=== PATIENT | female | born 1925 | race Caucasian/White ===

== ENCOUNTER 2017-01-18 23:56 | Emergency (ER) | payer MEDICARE, BC ==
[2017-01-19 00:02] VITALS: BP 152/64
[2017-01-19] MEDS ORDERED: NS 0.9% 1000 ML* 1,000 ML IV ONE (00:41)
[2017-01-19] MEDS ORDERED: Acetaminophen TAB* 325 MG PO ONE (00:43)
[2017-01-19 01:22] LABS: Hematocrit 38 % (35-47); Hemoglobin 12.5 g/dl (12.0-16.0); Mean Corpuscular HGB Conc 33 g/dl (31-36); Mean Corpuscular Hemoglobin 31 pg (27-31); Mean Corpuscular Volume 95 fL (80-97); Mean Platelet Volume 8 um3 (7.4-10.4); Red Blood Count 4.04 10^6/ul (4.0-5.4); Red Cell Distribution Width 14 % (10.5-15); White Blood Count 10.9 10^3/ul (3.5-10.8)
[2017-01-19 01:38] LABS: BUN/Creatinine Ratio 23.8 (8-20); EGFR African American 41.7 (>60); EGFR Non-African American 32.4 (>60); Globulin 2.9 g/dL (2-4); Potassium 4.8 mmol/L (3.5-5.0); Total Bilirubin 0.5 mg/dL (0.2-1.0); Total Protein 6.9 g/dL (6.4-8.9)
[2017-01-19 02:19] LABS: C Reactive Protein 1.14 mg/L (< 5.00)
--- NOTE | 2017-01-19 03:59 | ED ---
Denny Barth Janilya, scribed for Elizabeth Rodgers MD on 01/19/17 at 0023 . Lower Extremity - HPI Summary HPI Summary: An 89 y/o female came in to [facility] presenting w/ a sudden onset of constant leg pain starting an hour ago. Pt states she was reading and crossing her legs. When she uncrossed her legs, her left leg would not "stretch out". There is still severe pain at this time. Severity rated 7/10. She also complains of a left foot pain. The pain is described as "something squeezing the arch of the foot". She also states it is red and swollen. Pt is not on blood thinners, although pt normally takes aspirin. PMHx pacemaker for afib, HTN. - History of Current Complaint Chief Complaint: EDExtremityLower Stated Complaint: LEFT FOOT RED AND SWELLING Time Seen by Provider: 01/19/17 00:09 Hx Obtained From: Patient Onset of Pain: Hours Onset/Duration: Hours Severity Initially: Moderate Severity Currently: Moderate Pain Intensity: 6 Pain Scale Used: 0-10 Numeric Timing: Constant Character Of Pain: Aching Associated Signs And Symptoms: Positive: Swelling, Redness Aggravating Factor(s): Nothing Alleviating Factor(s): Nothing - Allergies/Home Medications Allergies/Adverse Reactions: Allergies Allergy/AdvReac Type Severity Reaction Status Date / Time No Known Allergies Allergy Verified 04/16/15 18:44 PMH/Surg Hx/FS Hx/Imm Hx Previously Healthy: Yes Endocrine/Hematology History: Denies: Hx Diabetes, Hx Thyroid Disease Cardiovascular History: Reports: Hx Angina, Hx Coronary Artery Disease, Hx Hypertension, Hx Pacemaker/ICD Respiratory History: Denies: Hx Asthma, Hx Chronic Obstructive Pulmonary Disease (COPD) GI History: Denies: Hx Ulcer Comment Only: Other GI Disorders - Current upper GI bleed. Musculoskeletal History: Reports: Hx Back Problems, Hx Orthopedic Injury - Right hip and humerus currently fx Denies: Hx Rheumatoid Arthritis, Hx Osteoporosis Sensory History: Reports: Hx Contacts or Glasses, Hx Hearing Aid Denies: Hx Cataracts, Hx Eye Injury, Hx Eye Prosthesis, Hx Glaucoma, Hx Legally Blind, Hx Macular Degeneration, Hx Vision Problem, Hx Deafness, Hx Hearing Problem, Other Sensory Impairments Opthamlomology History: Reports: Hx Contacts or Glasses Denies: Hx Cataracts, Hx Eye Injury, Hx Eye Prosthesis, Hx Glaucoma, Hx Legally Blind, Hx Macular Degeneration, Hx Vision Problem, Other Sensory Impairments - Cancer History Cancer Type, Location and Year: right breast ca - see below Hx Chemotherapy: Yes - BREAST Hx Radiation Therapy: No - Surgical History Surgery Procedure, Year, and Place: breast cancer mastectomy with lymphectomy right side 2012. right hip fx - repaired with pins,. right shoulder fx. hysterrectomy. ectopic surgery Hx Anesthesia Reactions: No Infectious Disease History: No Infectious Disease History: Denies: Hx Clostridium Difficile, Hx Hepatitis, Hx Human Immunodeficiency Virus (HIV), Hx of Known/Suspected MRSA, Hx Shingles, Hx Tuberculosis, Hx Known/ Suspected VRE, Hx Known/Suspected VRSA, History Other Infectious Disease, Traveled Outside the [place] in Last 30 Days - Family History Known Family History: Negative: Hypertension - Social History Occupation: Retired Lives: With Family Alcohol Use: None Hx Substance Use: No Substance Use Type: Reports: None Hx Tobacco Use: Yes Smoking Status (MU): Former Smoker Type: Cigarettes Length of Time of Smoking/Using Tobacco: only smoked 1 year Have You Smoked in the Last Year: No Review of Systems Positive: Arthralgia - L leg pain, Myalgia - L leg pain, Edema - of L foot Positive: Other - erythema of L foot All Other Systems Reviewed And Are Negative: Yes Physical Exam Triage Information Reviewed: Yes Vital Signs On Initial Exam: Initial Vitals Temp Pulse Resp BP Pulse Ox 98.1 F 60 14 152/64 100 01/19/17 00:01 01/19/17 00:01 01/19/17 00:01 01/19/17 00:01 01/19/17 00:01 Vital Signs Reviewed: Yes Appearance: Positive: Well-Appearing, No Pain Distress Skin: Positive: Warm, Skin Color Reflects Adequate Perfusion Eyes: Positive: EOMI, DEMARCUS ENT: Positive: Pharynx normal, TMs normal Neck: Positive: Supple, Nontender Respiratory/Lung Sounds: Positive: Clear to Auscultation, Breath Sounds Present. Negative: Rales, Rhonchi, Wheezes Cardiovascular: Positive: RRR. Negative: Murmur, Rub, Other - no gallops Abdomen Description: Positive: Nontender, Soft. Negative: Distended, Guarding, Other: - no rebound Bowel Sounds: Positive: Present Musculoskeletal: Positive: Strength/ROM Intact, Other - Left leg is red and warm to touch. There is good blood flow, good pulses. Tenderness of plantar fascia and tenderness of calf. Neurological: Positive: Sensory/Motor Intact, Alert, Oriented to Person Place, Time, CN Intact II-III Psychiatric: Positive: Affect/Mood Appropriate Diagnostics - Vital Signs Vital Signs Temp Pulse Resp BP Pulse Ox 01/19/17 00:01 98.1 F 60 14 152/64 100 - Laboratory Lab Results: Lab Results 01/19/17 01/19/17 Range/Units 01:10 01:10 WBC 10.9 H (3.5-10.8) 10^3/ul RBC 4.04 (4.0-5.4) 10^6/ul Hgb 12.5 (12.0-16.0) g/dl Hct 38 (35-47) % MCV 95 (80-97) fL MCH 31 (27-31) pg MCHC 33 (31-36) g/dl RDW 14 (10.5-15) % Plt Count 160 (150-450) 10^3/ul MPV 8 (7.4-10.4) um3 Neut % (Auto) 72.6 (38-83) % Lymph % (Auto) 16.6 L (25-47) % Throckmorton % (Auto) 7.3 (1-9) % Eos % (Auto) 2.5 (0-6) % Baso % (Auto) 1.0 (0-2) % Absolute Neuts (auto) 8.0 H (1.5-7.7) 10^3/ul Absolute Lymphs (auto) 1.8 (1.0-4.8) 10^3/ul Absolute Monos (auto) 0.8 (0-0.8) 10^3/ul Absolute Eos (auto) 0.3 (0-0.6) 10^3/ul Absolute Basos (auto) 0.1 (0-0.2) 10^3/ul Absolute Nucleated RBC 0 10^3/ul Nucleated RBC % 0 Sodium 132 L (133-145) mmol/L Potassium 4.8 (3.5-5.0) mmol/L Chloride 98 L (101-111) mmol/L Carbon Dioxide 31 (22-32) mmol/L Anion Gap 3 (2-11) mmol/L BUN 36 H (6-24) mg/dL Creatinine 1.51 H (0.51-0.95) mg/dL Est GFR ( Amer) 41.7 (>60) Est GFR (Non-Af Amer) 32.4 (>60) BUN/Creatinine Ratio 23.8 H (8-20) Glucose 103 H (70-100) mg/dL Calcium 9.0 (8.6-10.3) mg/dL Total Bilirubin 0.50 (0.2-1.0) mg/dL AST 21 (13-39) U/L ALT 14 (7-52) U/L Alkaline Phosphatase 59 (34-104) U/L C-Reactive Protein 1.14 (< 5.00) mg/L Total Protein 6.9 (6.4-8.9) g/dL Albumin 4.0 (3.2-5.2) g/dL Globulin 2.9 (2-4) g/dL Albumin/Globulin Ratio 1.4 (1-3) Result Diagrams: 01/19/17 01:10 01/19/17 01:10 Lab Statement: Any lab studies that have been ordered have been reviewed, and results considered in the medical decision making process. - Ultrasound No standard instances Ultrasound Interpretation: No Acute Changes - Venous doppler exam: No evidence for DVT visualized portions left lower extremity. Left peroneal veins difficult to see, possibly due to small size. Ultrasound Interpretation Completed By: Radiologist Lower Extremity Course/Dx - Course Course Of Treatment: An 89 y/o female came in to [facility] presenting w/ a sudden onset of constant leg pain starting an hour ago. Pt states she was reading and crossing her legs. When she uncrossed her legs, her left leg would not "stretch out". There is still severe pain at this time. Severity rated 7/10. She also complains of a left foot pain. The pain is described as "something squeezing the arch of the foot". She also states it is red and swollen. left foot with slight increase in warmth than right but both feet with extensive varicose veins. xray of foot neg, labs neg, and doppler neg. she is notably tender over the plantar fascia, pt and daughter very concerned about change in color and so a script for keflex was sent to [facility] in case she starts to get streaking or increased redness over foot on friday when her pmd is not available. Pt is not on blood thinners, although pt normally takes aspirin. PMHx pacemaker for afib , HTN. - Diagnoses Provider Diagnoses: Plantar fasciitis Discharge - Discharge Plan Condition: Stable Disposition: HOME Prescriptions: Cephalexin CAP* [Keflex CAP*] 500 mg PO QID #28 cap The documentation as recorded by the Denny perrin Janilya accurately reflects the service I personally performed and the decisions made by me, Elizabeth Rodgers MD.
--- NOTE | 2017-01-19 08:24 | RAD ---
Indication: LEFT foot pain and swelling. Comparison: No relevant prior exams available on the [facility] [place] Technique: AP, lateral, and oblique views LEFT foot. Report: Bone density appears decreased throughout corresponding with osteopenia on August 28, 2015 DEXA scan. No cortical disruption or suspicious trabecular irregularity to suggest fracture. Negative for dislocation. Diffuse hyperextension of the toes at the metatarsophalangeal joints. Mild osteophytosis and joint space narrowing at the first metatarsal phalangeal joint. Mild nonfocal soft tissue swelling. Negative for subcutaneous emphysema. IMPRESSION: Negative for fracture.
--- NOTE | 2017-01-19 11:33 | RAD ---
INDICATION: LEFT foot and calf pain. COMPARISON: No relevant prior exams available on the [facility] [place]. TECHNIQUE: Jones scale, color Doppler, and spectral analysis of the deep veins of the LEFT lower extremity. Vessel compression, phasicity, and augmentation assessed. REPORT: The LEFT common femoral, great saphenous, profunda femoral, femoral, and popliteal veins are patent. Patent posterior tibial veins. Conspicuity of the paired diminutive peroneal veins is limited without gross evidence for thrombosis. Patency of the contralateral common femoral vein documented. IMPRESSION: 1. No evidence for LEFT lower extremity DVT from the level of the popliteal vein proximal. 2. Assessment of the LEFT below-knee veins limited without gross evidence for posterior tibial or peroneal vein thrombosis.
== END 2017-01-19 04:17 | disposition home or self-care (01) ==
LOC: ED 23:56
DX: M72.2 Plantar fascial fibromatosis (principal)
CPT/HCPCS: 36415; 80053; 85025; 86140; 99282; A9270-GY

== ENCOUNTER 2017-03-13 12:07 | Emergency (ER) | payer MEDICARE, BC ==
[2017-03-13] MEDS ORDERED: Ondansetron ODT TAB* 4 MG PO ONE (12:49)
--- NOTE | 2017-03-13 12:55 | ED ---
Complex/Multi-Sys Presentation - HPI Summary HPI Summary: Pt here w/ mechanical fall this morning - tripped over feet - hit face, has BELL and feels a little dizzy now - no prior dizziness, chest pain, SOB, pain. Takes ASA daily. Mild neck pain at base of neck. Denies pain in extremities or elsewhere. A. fib controlled w/ meds. Pacer. No anticoagulants. - History Of Current Complaint Chief Complaint: EDHeadInjury Time Seen by Provider: 03/13/17 12:49 Hx Obtained From: Patient - Allergies/Home Medications Allergies/Adverse Reactions: Allergies Allergy/AdvReac Type Severity Reaction Status Date / Time No Known Allergies Allergy Verified 03/13/17 12:21 Home Medications: Home Medications Alendronate (NF) [Fosamax (NF)] 70 mg PO WEEKLY 03/13/17 [History Confirmed ] Amiodarone TAB* [Cordarone TAB*] 200 mg PO DAILY 03/13/17 [History Confirmed ] Aspirin EC Low Dose* [Ecotrin EC Low Dose 81 MG*] 81 mg PO DAILY 03/13/17 [ History Confirmed 03/13/17] Cholecalciferol [Vitamin D3 Super Strength] 2,000 unit PO DAILY 03/13/17 [ History Confirmed 03/13/17] Ferrous Sulfate [Iron (Ferrous Sulfate)] 50 mg PO DAILY 03/13/17 [History Confirmed 03/13/17] Nystatin OINT* 1 applic TOPICAL BID PRN 03/13/17 [History Confirmed 03/13/17] Potassium Chlor TAB* [Klor Con ER TAB*] 10 meq PO DAILY 03/13/17 [History Confirmed 03/13/17] Sodium Fluoride (Dental) [Prevident Fluoride] 1.1 % PO DAILY 03/13/17 [History Confirmed 03/13/17] Spironolactone TAB* [Aldactone TAB*] 12.5 mg PO DAILY 03/13/17 [History Confirmed 03/13/17] Triamcinolone 0.025% OINT * 1 applic TOPICAL BID PRN 03/13/17 [History Confirmed 03/13/17] PMH/Surg Hx/FS Hx/Imm Hx Endocrine/Hematology History: Reports: Hx Anticoagulant Therapy Denies: Hx Diabetes, Hx Thyroid Disease Cardiovascular History: Reports: Hx Angina, Hx Coronary Artery Disease, Hx Hypertension, Hx Pacemaker/ICD Respiratory History: Denies: Hx Asthma, Hx Chronic Obstructive Pulmonary Disease (COPD) GI History: Denies: Hx Ulcer Comment Only: Other GI Disorders - Current upper GI bleed. Musculoskeletal History: Reports: Hx Back Problems, Hx Orthopedic Injury - Right hip and humerus currently fx Denies: Hx Rheumatoid Arthritis, Hx Osteoporosis Sensory History: Reports: Hx Contacts or Glasses, Hx Hearing Aid Denies: Hx Cataracts, Hx Eye Injury, Hx Eye Prosthesis, Hx Glaucoma, Hx Legally Blind, Hx Macular Degeneration, Hx Vision Problem, Hx Deafness, Hx Hearing Problem, Other Sensory Impairments Opthamlomology History: Reports: Hx Contacts or Glasses Denies: Hx Cataracts, Hx Eye Injury, Hx Eye Prosthesis, Hx Glaucoma, Hx Legally Blind, Hx Macular Degeneration, Hx Vision Problem, Other Sensory Impairments - Cancer History Cancer Type, Location and Year: right breast ca - see below Hx Chemotherapy: Yes - BREAST Hx Radiation Therapy: No - Surgical History Surgery Procedure, Year, and Place: breast cancer mastectomy with lymphectomy right side 2012. right hip fx - repaired with pins,. right shoulder fx. hysterrectomy. ectopic surgery Hx Anesthesia Reactions: No Infectious Disease History: Denies: Hx Clostridium Difficile, Hx Hepatitis, Hx Human Immunodeficiency Virus (HIV), Hx of Known/Suspected MRSA, Hx Shingles, Hx Tuberculosis, Hx Known/ Suspected VRE, Hx Known/Suspected VRSA, History Other Infectious Disease, Traveled Outside the [place] in Last 30 Days - Family History Known Family History: Negative: Hypertension - Social History Alcohol Use: None Hx Substance Use: No Substance Use Type: Reports: None Hx Tobacco Use: Yes Smoking Status (MU): Former Smoker Type: Cigarettes Length of Time of Smoking/Using Tobacco: only smoked 1 year Have You Smoked in the Last Year: No Review of Systems Constitutional: Other - see HPI Eyes: Other - see HPI Negative: Dental Pain, Ear Ache Negative: Chest Pain Negative: Shortness Of Breath Negative: Vomiting, Nausea Positive: no symptoms reported Musculoskeletal: Other - see HPI Skin: Other - see HPI Neurological: Other - see HPI Psychological: Normal All Other Systems Reviewed And Are Negative: Yes Physical Exam Triage Information Reviewed: Yes Vital Signs On Initial Exam: Initial Vitals Temp Pulse Resp BP Pulse Ox 97.2 F 103 14 180/55 96 03/13/17 12:10 03/13/17 12:10 03/13/17 12:10 03/13/17 12:10 03/13/17 12:10 Vital Signs Reviewed: Yes Appearance: Positive: Well-Appearing, No Pain Distress, Thin Skin: Positive: Warm, Dry - ecchymosis w/ edema over Rt zygomatic region; ecchymosis w/ edema over Rt lower lip Head/Face: Positive: Other - as above Eyes: Positive: Normal, EOMI, DEMARCUS, Conjunctiva Clear ENT: Positive: Hearing grossly normal, Pharynx normal - no blood, Nasal drainage - Rt nare w/ dried blood, TMs normal - no hemotympanum Dental: Negative: Dental Fracture @ Neck: Positive: Supple, Tenderness @ - baase of cervical spine Respiratory/Lung Sounds: Positive: Breath Sounds Present Cardiovascular: Positive: Normal, Pulses are Symmetrical in both Upper and Lower Extremities Abdomen Description: Positive: Soft, Other: - Lt side ab/pelvis TTP Bowel Sounds: Positive: Present Musculoskeletal: Positive: Normal, Strength/ROM Intact Neurological: Positive: Normal, Sensory/Motor Intact, Alert, Oriented to Person Place, Time, CN Intact II-III Psychiatric: Positive: Normal - [place] Coma Scale Coma Scale Total: 15 Diagnostics - Vital Signs Vital Signs Temp Pulse Resp BP Pulse Ox 03/13/17 12:18 60 13 95 03/13/17 12:17 179/63 03/13/17 12:16 97.2 F 60 14 179/63 96 03/13/17 12:10 97.2 F 103 14 180/55 96 - Laboratory Result Diagrams: 03/13/17 12:58 Lab Statement: Any lab studies that have been ordered have been reviewed, and results considered in the medical decision making process. Complex Multi-Symp Course/Dx Course Of Treatment: Pt's family arrived over course of evaluation. She appears to have a mild concussion, facial contusions and cervical strain. Reviewed tx plan and danger s/sx to monitor. Pt and family agree w/ plan and will return if concerns arise as reviewed. Otherwise, to f/u w/ PCP. - Diagnoses Provider Diagnoses: Cervical strain, Fall from standing, Concussion, Facial contusion Discharge - Discharge Plan Condition: Stable Disposition: HOME Patient Education Materials: Cervical Strain (ED), Concussion (ED), Fall Prevention for Older Adults (ED), Facial Contusion (ED) Referrals: Richard Guo MD [Primary Care Provider] - Additional Instructions: Rest, ice face and sore areas, gentle stretches to prevent stiffness You may try heat in a few days You may take acetaminophen 650mg every 6 hours for pain Follow-up with PCP early next week - call tomorrow to schedule appointment *If you develop severe headache, fever, change in vision, numbness, weakness, vomiting, confusion, return to ED NOTE: you have reported increase in falls - please review with PCP - it was mentioned this may be due to amiodorone - discuss w/ PCP or [employer].
[2017-03-13 13:07] LABS: Hematocrit 39 % (35-47); Hemoglobin 12.7 g/dl (12.0-16.0); Mean Corpuscular HGB Conc 33 g/dl (31-36); Mean Corpuscular Hemoglobin 30 pg (27-31); Mean Corpuscular Volume 92 fL (80-97); Mean Platelet Volume 8 um3 (7.4-10.4); Red Blood Count 4.26 10^6/ul (4.0-5.4); Red Cell Distribution Width 13 % (10.5-15); White Blood Count 7.3 10^3/ul (3.5-10.8)
--- NOTE | 2017-03-13 13:39 | RAD ---
Indication: Fall with headaches. CT of the brain was performed without IV contrast. Ventricular structures are midline. No midline shift is noted. The extra-axial spaces are unremarkable. There is no evidence of intracranial mass or hemorrhage. No other high or low density lesions are noted. Mastoid air cells and paranasal sinuses are unremarkable. IMPRESSION: CHRONIC ISCHEMIC WHITE MATTER CHANGE. NO INTRACRANIAL MASS OR HEMORRHAGE IS NOTED.
--- NOTE | 2017-03-13 13:46 | RAD ---
INDICATION: Fall, neck pain. COMPARISON: Comparison is made with a prior CT of the cervical spine from February 20, 2016. TECHNIQUE: Contiguous axial sections were obtained from the skull base through the T1 vertebra. Images were reconstructed in the sagittal and coronal planes. FINDINGS: The vertebra are in normal alignment. No prevertebral soft tissue swelling or fracture is seen. At the C3-C4 level there is mild posterior uncinate process spurring and hypertrophic changes within the right facet joint. No spinal canal narrowing is present. There is moderate neural foraminal narrowing on the right side. At the C4-C5 level there is mild posterior uncinate process spurring associated with a mild broad-based disc bulge. There is mild spinal canal narrowing and mild neural foraminal narrowing on the right side. At the C5-C6 level there is mild to moderate posterior uncinate process spurring which causes mild to moderate spinal canal narrowing and moderate bilateral neural foraminal narrowing. At the C6-C7 level there is mild posterior uncinate process spurring. No significant spinal canal or neural foraminal narrowing is seen. IMPRESSION: 1. NO EVIDENCE FOR FRACTURE OR SUBLUXATION. 2. MILD TO MODERATE CERVICAL SPONDYLOSIS.
--- NOTE | 2017-03-13 13:52 | RAD ---
Indication: Fall, facial contusion with special attention to the right zygomatic process. CT of the facial bones was obtained in the axial plane. Sagittal and coronal reconstructed images were obtained. The mandible demonstrates no fracture. The maxilla demonstrates no fracture. Pterygoid plates are intact. The mandible is grossly unremarkable. Soft tissue swelling is noted superficial to the right maxillary sinus however the right maxillary sinus and right zygomatic arch is intact with no fracture. The orbits were visualized are unremarkable. The nasal arch is intact. Mastoid air cells are otherwise unremarkable. IMPRESSION: No fracture of the facial bones is identified. Soft tissue swelling superficial to the right maxillary sinus.
--- NOTE | 2017-03-13 14:14 | RAD ---
INDICATION: Mechanical fall at home. Patient denies chest or abdominal/pelvic related complaints at present. History of right breast cancer with lumpectomy 2012. History of hip fracture. Hysterectomy. COMPARISON: CT chest/abdomen/pelvis August 25, 2009 TECHNIQUE: Limited noncontrast axial source images were obtained from the thoracic inlet to the symphysis pubis. Coronal and sagittal reconstructed images were acquired. CHEST FINDINGS: Neck/thyroid: The visualized neck to include the thyroid appear normal. Chest wall: There are no acute abnormalities of the bony thorax or chest wall. There is right lumpectomy. There is right axillary dissection. There is a left-sided cardiac pacemaker. There is no supraclavicular, infraclavicular, or axillary lymphadenopathy. Lungs : There are no pulmonary worsening parenchymal masses or acute infiltrates. The there are mild chronic interstitial changes. There is a small calcified granuloma in the right middle lobe. There are no endobronchial lesions. Cardiomediastinal structures: The heart is mildly enlarged. There is pacemaker artifact. There is no pericardial effusion. There is no evidence of aortic aneurysm or dissection. The pulmonary vessels appear normal. There is no mediastinal or hilar adenopathy. The esophagus appears normal. Pleura : There are no pleural-based masses or effusions. ABDOMINAL/PELVIC FINDINGS: Liver: The liver is normal in size. Noncontrast imaging demonstrates several low-density hepatic lesions similar in size to earlier CT imaging. These are likely cysts. Gallbladder: Multiple calcified gallstones. This represents a previously documented finding.. Spleen: No mass on noncontrast evaluation. Pancreas: Limited evaluation due to lack of oral and intravenous contrast. No specific CT abnormalities.. Adrenal glands: Suspect mild bilateral adrenal hyperplasia. The appearance is unchanged. Kidneys: Noncontrast CT imaging demonstrates no evidence of mass, nephrolithiasis, or hydronephrosis. Adenopathy: No gross adenopathy. Limited evaluation without IV contrast. Fluid collections: There are no free or localized fluid collections. Vessels:There are atherosclerotic changes of the aorta. There is no focal aneurysm. The IVC is unremarkable GI tract: Limited evaluation as no oral contrast was given. No acute findings. There are scattered diverticula. There is stool in the rectal vault. Pelvic organs: There is hysterectomy. There is no adnexal mass Bladder: There are no bladder masses. Abdominal and pelvic soft tissues: The extraperitoneal abdominal and pelvic soft tissues appear normal.. Osseous structures: There are no acute osseous findings. There is osteopenia. There is mild kyphoscoliosis There is prior right hip pinning. There is mild spondylitic change of the thoracolumbar spine. Note that a bone scan is a more sensitive means to evaluate for potential osseous metastasis in this patient with a history of breast carcinoma. IMPRESSION: 1. Limited noncontrast imaging was performed. No acute CT findings are noted. 2. Cholelithiasis. 3. Postsurgical changes to include right lumpectomy with axillary dissection, right hip pinning and hysterectomy. 4. Suspect hepatic cysts, unchanged. 5. Scattered diverticula
[2017-03-13 16:05] VITALS: BP 127/47
== END 2017-03-13 16:45 | disposition home or self-care (01) ==
LOC: ED 12:07
DX: S16.1XXA Strain of muscle, fascia and tendon at neck level, initial encounter (principal); R51 Headache; S00.83XA Contusion of other part of head, initial encounter; R42 Dizziness and giddiness; S06.0X0A Concussion without loss of consciousness, initial encounter; W19.XXXA Unspecified fall, initial encounter; Y93.9 Activity, unspecified; Y92.9 Unspecified place or not applicable
CPT/HCPCS: 36415; 70450; 70486; 71250; 72125; 74176; 85025; 85610; 85730; 93005; 99283; A9270-GY